=== PATIENT | male | born 1960 | race Caucasian/White ===

== ENCOUNTER 2019-10-21 13:17 | Outpatient (RCR) | payer MEDICARE, SELFPAY ==
--- NOTE | 2019-10-21 14:29 | PTOPEVAL ---
Thank you for referring this patient to [facility]. Please review, sign, date and return this plan of care [facility]. I agree with and certify that the following plan of care is medically necessary. Referring Physician Date Admitting Provider: Attending Provider: Edith Flores, JUVENILE PROBATION OFFICER Referring Provider: *PT Outpatient Evaluation Start: 10/21/19 13:07 Freq: Status: Active Protocol: Document 10/21/19 13:08 ELANA (Rec: 10/21/19 13:55 ELANA [id number]) Therapy Assessment Status Assessment Status Assessment Status Evaluation Evaluation Information Problem Diagnosis lumbar radiculopathy Onset 10/14/19 Subjective Information Pt. reports that he has been Query Text:As Reported By Patient/ experiencing on/off low back Family pain for 4-5 years. He reports that he has attempted epidural and nerve blocks without success. He reports that he takes Vicodin daily and has for the past 2 months. He reports that pain is located across the low back. He states that he is currently no disability for his low back pain. He reports that pain is worsened with all activities and states that he only gets 4 hours of sleep nightly due to pain. He reports that he does care for himself. He reports that his goal is to attempt to reduce his back pain. Diagnostic Tests MRI For This Problem Yes: L5-S1 severe degenration Prior Level of Function Activity Level (Last 3 Months) Hand Dominance Right Activity of Daily Living Ability Independent Indoor/Home Mobility Independent Community Mobility Independent Stairs Ability Independent Functional Cognition (Planning, Shopping Independent , Taking Medications) Cooking Yes Cleaning Yes Laundry Yes Shopping Yes Driving Yes Pain Assessment Timing of Pain Assessment Timing of Pain Assessment Pre-Treatment Pain Scale Pain Scale Used Numeric (1 - 10) Self Report Pain Assessment Lower Back Reported Pain Level 5 Pain Description Aching,Burning Current Pain Intensity 5
== END 2019-11-04 23:59 | disposition home or self-care (01) ==
LOC: CHSPT 13:17
PROVIDERS: PCP Family Medicine; Visit Provider Nurse Practitioner Family
DX: M54.16 Radiculopathy, lumbar region (principal)
CPT/HCPCS: 97014; 97110; 97161; G0283

== ENCOUNTER 2020-02-13 07:58 | Outpatient (CLI) | payer MEDICARE, SELFPAY ==
--- NOTE | ~2020-02-13 | MR_ITS ---
EXAMINATION: MR thoracic spine wo con DATE: 02/13/2020 09:45 INDICATION: Chronic back pain. Lumbar radiculopathy. TECHNIQUE: Magnetic resonance imaging (MRI) of the thoracic spine was performed without intravenous c ontrast. Sagittal localizer T1-weighted FSE of the cervical spine was obtained. Thoracic spine sequen edmund included sagittal T2-weighted FSE, sagittal T1-weighted FSE, sagittal T2-weighted FS FSE, and axi al T2-weighted FSE. COMPARISON: Chest CT 04/20/2019 FINDINGS: Bone alignment is normal and thoracic spine. Vertebral body heights are normal. There are h emangiomas in T10 and T12 vertebral bodies. Intervertebral disc heights are normal. The discs do not extend beyond the endplate margins. There is multilevel mild facet joint osteoarthritis. At T1-T2, th ere is mild bilateral neural foraminal stenosis. No central canal stenosis. The spinal cord signal in tensity is normal. IMPRESSION: 1. Mild thoracic spondylosis. Reviewed, dictated and finalized at location A.
== END 2020-02-13 07:59 | disposition home or self-care (01) ==
LOC: CHSIMG 08:00
PROVIDERS: PCP Family Medicine; Visit Provider Nurse Practitioner Family
DX: M54.16 Radiculopathy, lumbar region (principal)
CPT/HCPCS: 72146

== ENCOUNTER 2020-08-22 09:55 | Outpatient (CLI) | payer MEDICARE, SELFPAY ==
[2020-08-22 10:10] LABS: Hematocrit 43.2 % (40.0-54.0); Hemoglobin 14.5 g/dL (14.0-18.0); Mean Corpuscular HGB Conc 33.6 g/dL (32.0-36.0); Mean Corpuscular Hemoglobin 29.7 pg (27.0-31.0); Mean Corpuscular Volume 88.5 fL (78.0-102.0); Mean Platelet Volume 9.8 fl (8.7-11.0); Platelet Count Result 156 K/mm3 (150-420); Red Blood Count 4.88 M/mm3 (4.70-6.10); Red Cell Distribution Width 12.5 % (11.6-14.4); White Blood Count 7.8 K/mm3 (4.8-10.8)
[2020-08-22 10:39] LABS: Alanine Aminotransferase 29 U/L (16-63); Albumin Level 4.4 g/dL (3.4-5.0); Alkaline Phosphatase 127 U/L (46-116); Anion Gap 9 mmol/L (8-16); Aspartate Amino Transferase < 10 U/L (15-37); Bilirubin,Total 0.4 mg/dL (0.00-1.00); Blood Urea Nitrogen 21 mg/dL (7-18); Calcium 9.6 mg/dL (8.5-10.1); Carbon Dioxide 29 mmol/L (21-32); Chloride 103 mmol/L (98-108); Cholesterol 302 mg/dL (0-200); Estimated Glomerular Filt Rate > 60; Glucose 105 mg/dL (70-99); HDL Direct 37 mg/dL (40-60); LDL Cholesterol Calculated 215 mg/dL (<130); Osmolality Calculated 295 mOsm/kg (285-295); Potassium 4.9 mmol/L (3.5-5.1); Sodium 141 mmol/L (136-145); Total Protein 7.6 g/dL (6.4-8.2); Triglycerides 251 mg/dL (0-150)
== END 2020-08-22 09:56 | disposition home or self-care (01) ==
LOC: CHSLAB 09:58
PROVIDERS: PCP Family Medicine; Visit Provider Family Medicine
DX: E78.5 Hyperlipidemia, unspecified (principal); F17.200 Nicotine dependence, unspecified, uncomplicated; I10 Essential (primary) hypertension; R03.0 Elevated blood-pressure reading, without diagnosis of hypertension
CPT/HCPCS: 36415; 80053; 80061; 85027

== ENCOUNTER 2021-12-11 12:34 | Outpatient (CLI) | payer MEDICARE, SELFPAY ==
--- NOTE | ~2021-12-11 | US_ITS ---
EXAMINATION: US arterial ankle brachial ind DATE: 12/11/2021 13:08 INDICATION: Peripheral vascular disease, unspecified. TECHNIQUE: Segmental pressures and plethysmographic and Doppler waveforms of the brachial and lower e xtremity arteries were obtained. COMPARISON: None. FINDINGS: Right and left brachial artery pressures of 130 mm Hg and 134 mm Hg, respectively, are concordant (no rmal difference <= 30 mmHg). The right ankle-brachial index (LUANA) is 1.10 (normal >= 0.9-1.0). The right great toe-brachial index (TBI) is 0.78 (normal >= 0.65). Arterial Doppler waveforms are triphasic at the ankle. The left LUANA is 1.13. The left TBI is 0.68. Arterial Doppler waveforms are triphasic at the ankle. IMPRESSION: 1. No significant arterial occlusive disease. Reviewed, dictated and finalized at location A.
[2021-12-11 12:47] LABS: Hematocrit 36.9 % (40.0-54.0); Hemoglobin 12.1 g/dL (14.0-18.0); Immature Platelet Fraction Pct 1.4 % (1.0-7.0); Mean Corpuscular HGB Conc 32.8 g/dL (32.0-36.0); Mean Corpuscular Hemoglobin 29.5 pg (27.0-31.0); Mean Platelet Volume 9.4 fl (8.7-11.0); Platelet Count Result 138 K/mm3 (150-420); Red Cell Distribution Width 12.8 % (11.6-14.4); White Blood Count 7.5 K/mm3 (4.8-10.8)
[2021-12-11 13:49] LABS: Alanine Aminotransferase 49 U/L (16-63); Albumin Level 3.7 g/dL (3.4-5.0); Alkaline Phosphatase 130 U/L (46-116); Anion Gap 8 mmol/L (8-16); Aspartate Amino Transferase 23 U/L (15-37); Bilirubin,Total 0.3 mg/dL (0.00-1.00); Blood Urea Nitrogen 24 mg/dL (7-18); CRP 1.9 mg/dL (0.0-0.9); Calcium 8.5 mg/dL (8.5-10.1); Carbon Dioxide 28 mmol/L (21-32); Chloride 103 mmol/L (98-108); Estimated Glomerular Filt Rate > 60; Glucose 115 mg/dL (70-99); Magnesium 1.6 mg/dL (1.8-2.4); Osmolality Calculated 293 mOsm/kg (285-295); Potassium 4.7 mmol/L (3.5-5.1); Sodium 139 mmol/L (136-145); Total Protein 6.4 g/dL (6.4-8.2)
== END 2021-12-11 12:35 | disposition home or self-care (01) ==
LOC: CHSIMG 12:34
PROVIDERS: PCP Family Medicine; Visit Provider Family Medicine
DX: I73.9 Peripheral vascular disease, unspecified (principal); L50.9 Urticaria, unspecified; F17.200 Nicotine dependence, unspecified, uncomplicated; I10 Essential (primary) hypertension
CPT/HCPCS: 36415; 80053; 83735; 85027; 85055; 86140; 93922

== ENCOUNTER 2022-05-22 10:17 | Outpatient (CLI) | payer MEDICARE, SELFPAY ==
[2022-05-22 10:34] LABS: Hematocrit 31.6 % (40.0-54.0); Hemoglobin 10.4 g/dL (14.0-18.0); Mean Corpuscular HGB Conc 32.9 g/dL (32.0-36.0); Mean Corpuscular Hemoglobin 29.7 pg (27.0-31.0); Mean Corpuscular Volume 90.3 fL (78.0-102.0); Mean Platelet Volume 9.9 fl (8.7-11.0); Platelet Count Result 139 K/mm3 (150-420); Red Cell Distribution Width 12.9 % (11.6-14.4); White Blood Count 6.4 K/mm3 (4.8-10.8)
[2022-05-22 11:01] LABS: Alanine Aminotransferase 23 U/L (16-63); Albumin Level 3.6 g/dL (3.4-5.0); Alkaline Phosphatase 116 U/L (46-116); Anion Gap 5 mmol/L (8-16); Aspartate Amino Transferase 15 U/L (15-37); Bilirubin,Total 0.2 mg/dL (0.00-1.00); Blood Urea Nitrogen 33 mg/dL (7-18); Calcium 8.3 mg/dL (8.5-10.1); Carbon Dioxide 26 mmol/L (21-32); Chloride 104 mmol/L (98-108); Estimated Glomerular Filt Rate 37; Glucose 97 mg/dL (70-99); Osmolality Calculated 287 mOsm/kg (285-295); Potassium 4.3 mmol/L (3.5-5.1); Sodium 135 mmol/L (136-145); Total Protein 6.2 g/dL (6.4-8.2)
== END 2022-05-22 10:18 | disposition home or self-care (01) ==
LOC: CHSLAB 10:25
PROVIDERS: PCP Family Medicine; Visit Provider Family Medicine
DX: I10 Essential (primary) hypertension (principal)
CPT/HCPCS: 36415; 80053; 85027

== ENCOUNTER 2022-05-24 08:25 | Outpatient (CLI) | payer MEDICARE, SELFPAY ==
--- NOTE | ~2022-05-24 | US_ITS ---
US abdomen limited DATE: 05/24/2022 08:55 INDICATION: Splenomegaly TECHNIQUE: Real-time imaging of liver, pancreas, gallbladder, spleen COMPARISON: None FINDINGS: Examination confirms splenomegaly. No hepatic or pancreatic space-occupying mass lesion is evident. Normal hepatopedal portal venous leandra w direction. No evidence of gallstones or gallbladder wall thickening or pericholecystic fluid collection. Negativ e sonographic Sharma's sign. The common bile duct measures 3.9 mm, normal. IMPRESSION: Splenomegaly Reviewed, dictated and finalized at Location A. Reviewed, dictated and finalized at location B. IMPRESSION: Splenomegaly
== END 2022-05-24 08:26 | disposition home or self-care (01) ==
LOC: CHSIMG 08:25
PROVIDERS: PCP Family Medicine; Visit Provider Family Medicine
DX: R16.1 Splenomegaly, not elsewhere classified (principal)
CPT/HCPCS: 76705

== ENCOUNTER 2022-06-01 15:57 | Outpatient (CLI) | payer MEDICARE, SELFPAY ==
[2022-06-01 16:17] LABS: Basophils Absolute Auto 0.04 K/mm3 (0.00-0.10); Basophils Percent Auto 0.6 % (0.0-1.0); Eosinophils Percent Auto 1.4 % (1.0-6.0); Hematocrit 33.1 % (40.0-54.0); Immature Granulocyte Absolute 0.03 K/mm3 (0.00-0.00); Immature Granulocyte Percent A 0.4 % (0.0-0.0); Lymphocytes Absolute Auto 2.63 K/mm3 (1.10-4.50); Lymphocytes Percent Auto 37.4 % (18.0-42.0); Mean Corpuscular HGB Conc 33.2 g/dL (32.0-36.0); Mean Corpuscular Volume 87.3 fL (78.0-102.0); Mean Platelet Volume 9.7 fl (8.7-11.0); Monocytes Absolute Auto 0.53 K/mm3 (0.10-0.90); Monocytes Percent Auto 7.5 % (2.0-11.0); Neutrophils Absolute Auto 3.7 K/mm3 (1.7-7.2); Neutrophils Percent Auto 52.7 % (50.0-70.0); Platelet Count Result 147 K/mm3 (150-420); Red Blood Count 3.79 M/mm3 (4.70-6.10); Red Cell Distribution Width 12.9 % (11.6-14.4)
[2022-06-01 17:25] LABS: Alanine Aminotransferase 20 U/L (16-63); Albumin Level 3.9 g/dL (3.4-5.0); Alkaline Phosphatase 121 U/L (46-116); Anion Gap 7 mmol/L (8-16); Aspartate Amino Transferase 10 U/L (15-37); Bilirubin,Total 0.3 mg/dL (0.00-1.00); Blood Urea Nitrogen 19 mg/dL (7-18); Calcium 8.6 mg/dL (8.5-10.1); Carbon Dioxide 29 mmol/L (21-32); Chloride 106 mmol/L (98-108); Estimated Glomerular Filt Rate 53; Ferritin 290 ng/mL (26-388); Folic Acid 11.3 ng/mL (8.6->20); Glucose 111 mg/dL (70-99); Iron 42 ug/dL (65-175); Lactate Dehydrogenase 170 U/L (85-227); Osmolality Calculated 297 mOsm/kg (285-295); Percent Iron Saturation 15 % (12-57); Potassium 3.9 mmol/L (3.5-5.1); Sodium 142 mmol/L (136-145); Total Protein 6.4 g/dL (6.4-8.2); Vitamin B12 567 pg/mL (193-986)
[2022-06-05 04:57] LABS: Angiotensin Converting Enzyme 10.9 U/L (9-67)
[2022-06-05 16:00] LABS: Alpha 1 Globulin 0.5 g/dL (0.2-0.3); Alpha 2 Globulin 0.7 g/dL (0.5-0.9); Beta 1 Globulin 0.4 g/dL (0.4-0.6); Gamma Globulin 0.6 g/dL (0.8-1.7); Protein, Total 6.4 g/dL (6.1-8.1)
[2022-06-06 10:21] LABS: BCR/abl Prior Result Not Given
[2022-06-06 11:09] LABS: BCR/abl P190 Not Detected; BCR/abl P210 Not Detected
[2022-06-06 11:10] LABS: BCR/abl P190 Chg YES; BCR/abl P210 Chg YES
[2022-06-07 13:43] LABS: CALR Exon 9 Mutation Not Detected (Not Detected); CSF3R Exon 14/17 Mutation Not Detected (Not Detected); JAK2 Exon 12 Mutation Not Detected (Not Detected); JAK2 V617F Mutation Not Detected (Not Detected); MPL Exon 10 Mutation Not Detected (Not Detected)
== END 2022-06-01 15:58 | disposition home or self-care (01) ==
LOC: CHSLAB 15:59
PROVIDERS: PCP Family Medicine; Visit Provider Internal Medicine Hematology & Oncology
DX: R16.1 Splenomegaly, not elsewhere classified (principal); D64.9 Anemia, unspecified; D47.1 Chronic myeloproliferative disease; D47.3 Essential (hemorrhagic) thrombocythemia
CPT/HCPCS: 36415; 80053; 81206; 81207; 81219; 81270; 81402; 81403; 81479; 82164; 82607; 82728; 82746; 83540; 83550; 83615; 84155; 84165; 85025

== ENCOUNTER 2022-06-06 10:48 | Outpatient (CLI) | payer MEDICARE, SELFPAY ==
--- NOTE | ~2022-06-06 | CT_ITS ---
EXAMINATION: CT lung screening DATE: 06/06/2022 11:10 INDICATION: History of tobacco use TECHNIQUE: Computed tomography (CT) of the chest was performed without intravenous contrast. The dose -length product was 126.69 mGy-cm. Automated exposure control and iterative reconstruction technique were employed. COMPARISON: CT dated 04/20/2019 FINDINGS: No thoracic lymphadenopathy. Heart size normal. No significant pleural or pericardial effus ion. Minimal atherosclerosis. There is splenomegaly. There is a 2 mm fissural nodule on the right. Th ere is left basilar atelectasis. No pneumothorax. No peripheral consolidation. No endobronchial lesio ns. There is a spinal stimulator lead overlying the mid thoracic spine. Mild thoracic spondylosis. IMPRESSION: 1. Lung-RADS category 2: Benign appearance or behavior. Continue annual screening with noncontrast lo w-dose chest CT in 12 months. Reviewed, dictated and finalized at location B. IMPRESSION: 1. Lung-RADS category 2: Benign appearance or behavior. Continue annual screeni ng with noncontrast low-dose chest CT in 12 months.
== END 2022-06-06 10:49 | disposition home or self-care (01) ==
PROVIDERS: PCP Family Medicine; Visit Provider Internal Medicine Hematology & Oncology
DX: Z12.2 Encounter for screening for malignant neoplasm of respiratory organs (principal); Z87.891 Personal history of nicotine dependence
CPT/HCPCS: 71271

== ENCOUNTER 2022-08-01 13:51 | Outpatient (CLI) | payer MEDICARE, SELFPAY ==
[2022-08-01 14:06] LABS: Hematocrit 38.2 % (40.0-54.0); Hemoglobin 12.2 g/dL (14.0-18.0); Immature Platelet Fraction Pct 1.5 % (1.0-7.0); Mean Corpuscular HGB Conc 31.9 g/dL (32.0-36.0); Mean Corpuscular Hemoglobin 27.8 pg (27.0-31.0); Mean Platelet Volume 9.7 fl (8.7-11.0); Platelet Count Result 148 K/mm3 (150-420); Red Blood Count 4.39 M/mm3 (4.70-6.10); Red Cell Distribution Width 12.1 % (11.6-14.4); White Blood Count 5.1 K/mm3 (4.8-10.8)
[2022-08-01 15:20] LABS: Alanine Aminotransferase 14 U/L (16-63); Albumin Level 3.8 g/dL (3.4-5.0); Alkaline Phosphatase 115 U/L (46-116); Anion Gap 8 mmol/L (8-16); Aspartate Amino Transferase 13 U/L (15-37); Bilirubin,Total 0.3 mg/dL (0.00-1.00); Blood Urea Nitrogen 21 mg/dL (7-18); CRP 0.9 mg/dL (0.0-0.9); Calcium 8.6 mg/dL (8.5-10.1); Carbon Dioxide 32 mmol/L (21-32); Chloride 105 mmol/L (98-108); Estimated Glomerular Filt Rate > 60; Glucose 100 mg/dL (70-99); Lipase 41 U/L (73-393); Osmolality Calculated 303 mOsm/kg (285-295); Potassium 4.2 mmol/L (3.5-5.1); Sodium 145 mmol/L (136-145); Total Protein 6.5 g/dL (6.4-8.2)
== END 2022-08-01 13:52 | disposition home or self-care (01) ==
LOC: CHSLAB 13:52
PROVIDERS: PCP Family Medicine; Visit Provider Internal Medicine Hematology & Oncology
DX: D64.9 Anemia, unspecified (principal); R10.9 Unspecified abdominal pain
CPT/HCPCS: 36415; 80053; 83690; 85027; 85055; 86140

== ENCOUNTER 2022-09-11 09:46 | Outpatient (CLI) | payer MEDICARE, SELFPAY ==
[2022-09-11 09:56] LABS: Basophils Percent Auto 0.2 % (0.2-1.2); Eosinophils Absolute Auto 0.1 K/mm3 (0-0.3); Eosinophils Percent Auto 1.4 % (0-4.4); Hematocrit 38.8 % (42.0-52.0); Immature Granulocyte Absolute 0.02 K/mm3 (0.00-0.031); Immature Granulocyte Percent A 0.3 % (0-0.5); Lymphocytes Absolute Auto 1.45 K/mm3 (0.9-3.2); Mean Corpuscular HGB Conc 33.5 g/dl (32-36); Mean Corpuscular Hemoglobin 27.8 pg (26-34); Mean Corpuscular Volume 83.1 fl (80-100); Monocytes Absolute Auto 0.4 K/mm3 (0.1-0.6); Monocytes Percent Auto 7.4 % (2.6-8.5); Neutrophils Absolute Auto 3.8 K/mm3 (1.3-6.7); Neutrophils Percent Auto 65.7 % (45.5-73.1); Platelet Count Result 144 k/mm3 (150-375); Red Blood Count 4.67 M/mm3 (4.6-6.20); Red Cell Distribution Width 13.2 % (11.5-14.5); White Blood Count 5.8 K/mm3 (4.5-10.0)
[2022-09-11 10:05] LABS: Blood Urea Nitrogen 17 mg/dL (8-26); Carbon Dioxide 25 mmol/L (22-30); Chloride 105 mmol/L (98-109); Estimated Glomerular Filt Rate > 60; Glucose 113 mg/dL (70-105); Ionized Calcium (POC) 1.18 mmol/L (1.11-1.31); Potassium 4.3 mmol/L (3.5-4.9); Sodium 139 mmol/L (138-146)
[2022-09-11 12:18] LABS: Alanine Aminotransferase 17 U/L (6-50); Albumin Level 4.4 g/dL (3.5-5.1); Alkaline Phosphatase 125 U/L (38-126); Anion Gap 8 mmol/L (8-16); Aspartate Amino Transferase 18 U/L (17-59); Bilirubin,Total 0.5 mg/dL (0.2-1.3); Blood Urea Nitrogen 16 mg/dL (9-20); Calcium 9.1 mg/dL (8.4-10.2); Carbon Dioxide 24 mmol/L (22-30); Chloride 104 mmol/L (98-107); Estimated Glomerular Filt Rate > 60; Glucose 112 mg/dL (65-110); Potassium 4.3 mmol/L (3.4-5.0); Sodium 136 mmol/L (137-145)
== END 2022-09-11 09:47 | disposition home or self-care (01) ==
LOC: ANHLAB 09:47
PROVIDERS: PCP Family Medicine; Visit Provider Internal Medicine Hematology & Oncology
DX: D64.9 Anemia, unspecified (principal)
CPT/HCPCS: 36415; 80047; 80053; 85025

== ENCOUNTER 2022-11-20 09:22 | Emergency (ER) | payer MEDICARE, SELFPAY ==
[2022-11-20] VITALS (97 sets, daily range): BP systolic 67–128; BP diastolic 37–94; PULSE 76–103; RESP 12–31; TEMP 36.6; O2SAT 92–100
--- NOTE | ~2022-11-20 | XR_ITS ---
Portable chest x-ray Comparison: None Clinical History: Shortness of breath Findings: There is linear scarring at the right midlung. No other consolidation or pleural effusion. Cardiomediastinal silhouette is stable. Intrathecal catheter present. Bones and soft tissues are ot herwise unremarkable. Impression: Linear scarring right midlung, otherwise clear lungs. Reviewed, dictated and finalized at location . Impression: Linear scarring right midlung, otherwise clear lungs.
--- NOTE | ~2022-11-20 | CT_ITS ---
EXAMINATION: CT abdomen pelvis wo con DATE: 11/20/2022 11:38 INDICATION: Abdominal pain, GI bleed TECHNIQUE: Computed tomography (CT) of the abdomen and pelvis was performed without intravenous contr ast. The dose-length product (DLP) was 783.14 mGy-cm. Automated exposure control and iterative recons truction technique were employed. COMPARISON: None FINDINGS: Minimal dependent atelectasis is present in the lung bases. The heart size is normal. There is mild nodularity of the liver surface. Splenomegaly is noted. There are perisplenic varices. The g allbladder, pancreas, and adrenal glands are normal. The kidneys are unremarkable. No pathologically enlarged abdominal or pelvic lymph nodes are identified. No free intraperitoneal gas or evidence of b owel obstruction. There is liquid stool throughout the colon to the level of the rectum. There is sev ere lumbar spondylosis at L5-S1. IMPRESSION: 1. 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 Reviewed, dictated and finalized at location L.
--- NOTE | ~2022-11-20 | XR_ITS ---
EXAMINATION: XR abdomen/kub 1V INDICATION: Generalized abdominal pain, GI bleeding TECHNIQUE: Supine views of the abdomen were obtained on three radiographs. COMPARISON: None FINDINGS: The bowel gas pattern is nonspecific. No dilated loops of bowel are seen. The visualized ji ng bases are clear. A neurostimulator device is implanted on the left with its leads projecting over the lower thoracic spine at the level of T8 and T9. IMPRESSION: 1. Nonspecific bowel gas pattern. Reviewed, dictated and finalized at location L.
--- NOTE | 2022-11-20 09:26 | ED.GENADULT ---
HPI - General Adult General Chief complaint: Abdominal Pain Stated complaint: Abdominal pain/Low BP Time Seen by Provider: 11/20/22 09:24 History of Present Illness HPI narrative: 62-year-old white male seen in the [facility] get clinic today with abdominal pain blood pressure in the 70s over 40s with the elevated pulse with blood in his stool black stools last couple days sent over by the physician chef assistant. Patient states he has had blood in his stool for the last 3 days has history of iron deficiency anemia. Does have been bright red on Saturday he vomited then no blood. He has had black stools since. He has had off and on for the last month he is taking about 1600 mg of ibuprofen. Is not on any blood thinners complains of epigastric pain. Denies any dizzy or lightheadedness he has not been eating very much last couple days. Denies any other bleeding or bruising. Denies any chest pain. He has got chronic back and leg pain. Related Data Allergies Allergy/AdvReac Type Severity Reaction Status Date / Time No Known Allergies Allergy Verified 11/20/22 09:29 Review of Systems Constitutional: Constitutional: Reports no additional constitutional complaints, Denies fever(s) and Denies weakness Eyes: Eyes: Reports no additional eye complaints ENT: Reports system reviewed and no additional complaints, except as documented Cardiovascular: Cardiovascular: Reports no additional cardiovascular complaints Respiratory: Respiratory: Reports no additional respiratory complaints Gastrointestinal: Gastrointestinal: Reports as per HPI, Reports abdominal pain, Denies constipation, Denies heartburn, Reports diarrhea, Reports nausea and Reports vomiting Genitourinary: Genitourinary: Reports no additional male genitourinary complaints Musculoskeletal: Musculoskeletal: Reports no additional musculoskeletal complaints Integumentary/Breasts: Skin/Breast: Denies rash Neurologic: Reports system reviewed and no additional complaints, except as documented Psychiatric: Psychiatric: Reports no additional psychiatric complaints Hematologic/Lymphatic: Hematologic/Lymphatic: Reports no additional hematologic/lymphatic complaints, Denies easy bleeding and Denies easy bruising Allergic/Immunologic: Allergic/Immunologic: Reports no additional allergic/immunologic complaints PMFSH Past Medical History Medical History Chronic back pain Hyperlipidemia Hypertension Nicotine dependence, unspecified, uncomplicated Urticaria Surgical History Surgical History No history of previous surgery Family History Family History Father Lung cancer Brother Family history of type 2 diabetes mellitus Social History Social History Smoking packs per day: 2 Smoking cigarettes per day: 40.0 Years smoked: 40 Smoking pack-years: 80.00 Smoking status: Current every day smoker Second hand tobacco smoke exposure: No Additional smoking assessment comments: Tried Chantix. Unsuccesful. Alcohol intake: current Alcohol use details: Consumes beer aprox 3 times per week. Substance use type: marijuana Lack of Transportation: No Lack of Food: Never True Current Housing: I Have Housing Concerned About Future Housing: No Difficulty Paying Gas/Electric Bills: No Difficulty Paying for Meds: No Currently Unemployed: No Education: High School Diploma/GED Difficulty w/ Childcare or Family Care: Decline to Answer Occupation/Education: occupation Additional occupation/education comments: Disability due to chronic back pain. Gender identity (if verbalized by the patient): Male Exam Narrative: White male no apparent distress.? blood pressure 86/62, pulse 100, respirations 18, temp afebrile O2 sat on room
[2022-11-20] MEDS: SODIUM CHLORIDE 0.9% IV 1,000 ML 999 ML IV CONT ×2 (09:45→10:34)
[2022-11-20] MEDS: ONDANSETRON INJ 4 MG/2 ML VIAL IV PUSH (09:45)
[2022-11-20] MEDS: PANTOPRAZOLE SODIUM IV 40 MG VIAL 80 MG IV PUSH (09:46)
--- NOTE | 2022-11-20 10:11 | PC.NURSE ---
PT DENIES ANY COMPLAINTS. SKIN W-D-P. VSS AT THIS TIME. IVF INFUSING ORDERED WITHOUT DIFFICULTY. WILL CONTINUE TO MONITOR.
[2022-11-20 10:21] LABS: Hematocrit 34.2 % (40.0-54.0); Hemoglobin 11.2 g/dL (14.0-18.0); Mean Corpuscular HGB Conc 32.7 g/dL (32.0-36.0); Mean Corpuscular Hemoglobin 28.3 pg (27.0-31.0); Mean Corpuscular Volume 86.4 fL (78.0-102.0); Mean Platelet Volume 10.4 fl (8.7-11.0); Platelet Count Result 136 K/mm3 (150-420); Red Blood Count 3.96 M/mm3 (4.70-6.10); Red Cell Distribution Width 14.9 % (11.6-14.4); White Blood Count 6.7 K/mm3 (4.8-10.8)
[2022-11-20 10:24] LABS: Occult Blood Positive (Negative)
--- NOTE | 2022-11-20 10:25 | PC.NURSE ---
BEDSIDE RECTAL PERFORMED PER ERP, GUIAC CARD SENT TO LAB. PT TOLERATED WELL. WILL CONTINUE TO MONITOR. 2ND IV SITE ESTABLISHED.
[2022-11-20 10:36] LABS: Alanine Aminotransferase 39 U/L (16-63); Albumin Level 3.5 g/dL (3.4-5.0); Alkaline Phosphatase 97 U/L (46-116); Anion Gap 19 mmol/L (8-16); Aspartate Amino Transferase 41 U/L (15-37); Bilirubin,Total 0.3 mg/dL (0.00-1.00); Blood Urea Nitrogen 74 mg/dL (7-18); Calcium 8.2 mg/dL (8.5-10.1); Carbon Dioxide 16 mmol/L (21-32); Chloride 101 mmol/L (98-108); Estimated CRCL calculation 12 ml/min; Estimated Glomerular Filt Rate 9; Glucose 103 mg/dL (70-99); Lipase 31 U/L (16-77); Magnesium 1.8 mg/dL (1.8-2.4); Osmolality Calculated 303 mOsm/kg (285-295); Potassium 4.8 mmol/L (3.5-5.1); Sodium 136 mmol/L (136-145); Total Protein 7.2 g/dL (6.4-8.2)
[2022-11-20 10:45] LABS: INR 0.9; Partial Thromboplastin Time 26.6 SEC (23.90-30.70); Prothrombin Time 10.4 Seconds (9.50-12.10)
[2022-11-20 10:59] LABS: Influenza A QL RT-PCR Negative (Negative); Influenza B QL RT-PCR Negative (Negative); SARS-CoV-2 RNA PCR Negative (Negative)
[2022-11-20 11:00] LABS: RSV RNA, RT-PCR Negative (Negative)
[2022-11-20] MEDS: SODIUM CHLORIDE 0.9% IV 1,000 ML 150 ML IV CONT (11:25)
--- NOTE | 2022-11-20 11:41 | PC.NURSE ---
PT'S HAS ARRIVED, PT HAS RETURNED FROM CT. PT IS ON BEDPAN AT THIS TIME. PT IS BECOMING ANXIOUS, REPORTING HE DOES NOT WANT TO GET IN AN AMBULANCE UNTIL HE SMOKES AND THAT HE CANNOT AFFORD AN AMBULANCE RIDE, THAT HE WOULD LIKE FOR HIS TO DRIVE HIM. EDUCATED AND PT ON THE IMPORTANCE OF EMS TRANSPORT DUE TO BP VALUES AT THIS TIME. PT IS GETTING HIMSELF WORKED UP. WILL ALLOW SOME PRIVACY TO UTILIZE BEDPAN AND RECHECK WHEN FINISHED. REMAINS AT BEDSIDE. PT DOES REPORT HE USED FENTANYL ON SATURDAY DUE TO BACK AND LEG PAIN. PT ALSO REPORTS HE IS A RECOVERING HEROIN ADDICT AND THE BACK STIMULATOR IS IN PLACE DUE TO HIM BEING ADDICTED TO THE VICODIN HE USED TO TAKE FOR HIS BACK PAIN. WILL CONTINUE TO MONITOR. IVF ARE INFUSING WITHOUT DIFFICULTY.
--- NOTE | 2022-11-20 13:37 | PC.NURSE ---
PT IS MUCH MORE CALM AT THIS TIME. PT AND ARE AWARE OF PLAN OF CARE. NO CHANGE IN PT STATUS. AWAITING ROOM ASSIGNMENT AT [facility] AT THIS TIME. WILL CONTINUE TO MONITOR.
--- NOTE | 2022-11-20 14:30 | PC.NURSE ---
pt is requesting something for pain, something to eat, to smoke. erp is aware. ivf and medications are infusing as ordered without difficulty. will continue to monitor.
[2022-11-20] MEDS: LORazepam (*CRX) 0.5 MG TABLET PO (14:53)
[2022-11-20] MEDS: MORPHINE SULFATE (*CRX) 2 MG/ML INJ 1 MG IV PUSH (14:55)
--- NOTE | 2022-11-20 15:02 | PC.NURSE ---
PT HAS HAD 2 LIQUID BROWN STOOLS. NO BLOOD NOTED. PT HAS BEEN MEDICATED. PT IS LYING ON STRETCHER TALKING WITH AND WATCHING TV AT THIS TIME. NAD NOTED. PT IS AWAITING ROOM ASSIGNMENT AT [facility]. WILL CONTINUE TO MONITOR.
--- NOTE | 2022-11-20 17:05 | PC.NURSE ---
CLEAR LIQUID TRAY PROVIDED ORDERED PER ERP. AT BEDSIDE. PT AND ARE AWARE OF PLAN OF CARE. PT HAS 600 ML CLEAR URINE OUTPUT. WILL CONTINUE TO MONITOR.
--- NOTE | 2022-11-20 17:35 | PC.NURSE ---
PT IS MOVED TO ROOM 4, PLACED IN HOSPITAL BED AT THIS TIME. AT BEDSIDE. PT ATE 75% OF FOOD TRAY. LAB AT BEDSIDE AT THIS TIME. PT DENIES ANY NEEDS OR COMPLAINTS. WILL CONTINUE TO MONITOR.
[2022-11-20 17:43] LABS: Hematocrit 33.9 % (40.0-54.0); Mean Corpuscular HGB Conc 32.4 g/dL (32.0-36.0); Mean Corpuscular Hemoglobin 29.3 pg (27.0-31.0); Mean Corpuscular Volume 90.4 fL (78.0-102.0); Mean Platelet Volume 10.1 fl (8.7-11.0); Platelet Count Result 110 K/mm3 (150-420); Red Blood Count 3.75 M/mm3 (4.70-6.10); Red Cell Distribution Width 15.1 % (11.6-14.4); White Blood Count 5.1 K/mm3 (4.8-10.8)
[2022-11-20 17:52] LABS: Anion Gap 15 mmol/L (8-16); Blood Urea Nitrogen 66 mg/dL (7-18); Calcium 8.1 mg/dL (8.5-10.1); Carbon Dioxide 16 mmol/L (21-32); Chloride 109 mmol/L (98-108); Estimated CRCL calculation 18 ml/min; Estimated Glomerular Filt Rate 14; Glucose 107 mg/dL (70-99); Osmolality Calculated 309 mOsm/kg (285-295); Sodium 140 mmol/L (136-145)
[2022-11-20] MEDS: SODIUM CHLORIDE 0.9% IV 1,000 ML 125 ML IV CONT (18:14)
[2022-11-21] VITALS (10 sets, daily range): BP systolic 82–114; BP diastolic 48–74; PULSE 86–96; RESP 14–22; O2SAT 92–95
[2022-11-21] MEDS: SODIUM CHLORIDE 0.9% IV 1,000 ML 125 ML IV CONT (02:38)
[2022-11-21] MEDS: LORazepam (*CRX) 1 MG TABLET PO (03:06)
== END 2022-11-21 05:04 | disposition short-term general hospital (02) ==
PROVIDERS: Emergency Provider Emergency Medicine; PCP Family Medicine
DX: K92.2 Gastrointestinal hemorrhage, unspecified (principal); N17.9 Acute kidney failure, unspecified; I10 Essential (primary) hypertension; E78.5 Hyperlipidemia, unspecified; F17.210 Nicotine dependence, cigarettes, uncomplicated; Z20.822 Contact with and (suspected) exposure to COVID-19
CPT/HCPCS: 36415; 71045; 74018; 74176; 80048; 80053; 83605; 83690; 83735; 85027; 85610; 85730; 86850; 86900; 86901; 87637; 96361; 96365; 96375; 99285; A9270; C9113; J0696; J2270; J2405; J7030

== ENCOUNTER 2022-11-29 10:19 | Outpatient (CLI) | payer MEDICARE, SELFPAY ==
[2022-11-29 10:32] LABS: Hematocrit 34.9 % (40.0-54.0); Hemoglobin 11.6 g/dL (14.0-18.0); Mean Corpuscular HGB Conc 33.2 g/dL (32.0-36.0); Mean Corpuscular Hemoglobin 29.5 pg (27.0-31.0); Mean Corpuscular Volume 88.8 fL (78.0-102.0); Mean Platelet Volume 9.4 fl (8.7-11.0); Platelet Count Result 208 K/mm3 (150-420); Red Blood Count 3.93 M/mm3 (4.70-6.10); Red Cell Distribution Width 14.3 % (11.6-14.4); White Blood Count 6.6 K/mm3 (4.8-10.8)
[2022-11-29 10:59] LABS: Alanine Aminotransferase 23 U/L (16-63); Albumin Level 4.1 g/dL (3.4-5.0); Alkaline Phosphatase 109 U/L (46-116); Anion Gap 11 mmol/L (8-16); Aspartate Amino Transferase 13 U/L (15-37); Bilirubin,Total 0.4 mg/dL (0.00-1.00); Blood Urea Nitrogen 17 mg/dL (7-18); Calcium 8.8 mg/dL (8.5-10.1); Carbon Dioxide 27 mmol/L (21-32); Chloride 107 mmol/L (98-108); Estimated Glomerular Filt Rate > 60; Glucose 93 mg/dL (70-99); Osmolality Calculated 301 mOsm/kg (285-295); Potassium 4.4 mmol/L (3.5-5.1); Sodium 145 mmol/L (136-145); Total Protein 7.3 g/dL (6.4-8.2)
== END 2022-11-29 10:20 | disposition home or self-care (01) ==
LOC: CHSLAB 10:22
PROVIDERS: PCP Family Medicine; Visit Provider Family Medicine
DX: D69.6 Thrombocytopenia, unspecified (principal)
CPT/HCPCS: 36415; 80053; 85027

== ENCOUNTER 2023-03-04 08:22 | Outpatient (CLI) | payer MEDICARE, SELFPAY ==
[2023-03-04 08:37] LABS: Basophils Absolute Auto 0.06 K/mm3 (0.00-0.10); Eosinophils Absolute Auto 0.21 K/mm3 (0.02-0.50); Eosinophils Percent Auto 3.5 % (1.0-6.0); Hematocrit 43.1 % (40.0-54.0); Hemoglobin 15.1 g/dL (14.0-18.0); Immature Granulocyte Absolute 0.05 K/mm3 (0.00-0.00); Immature Granulocyte Percent A 0.8 % (0.0-0.0); Lymphocytes Absolute Auto 0.93 K/mm3 (1.10-4.50); Lymphocytes Percent Auto 15.7 % (18.0-42.0); Mean Corpuscular Volume 85.7 fL (78.0-102.0); Mean Platelet Volume 9.6 fl (8.7-11.0); Monocytes Percent Auto 11.8 % (2.0-11.0); Neutrophils Percent Auto 67.2 % (50.0-70.0); Platelet Count Result 184 K/mm3 (150-420); Red Blood Count 5.03 M/mm3 (4.70-6.10); Red Cell Distribution Width 12.4 % (11.6-14.4); White Blood Count 5.9 K/mm3 (4.8-10.8)
[2023-03-04 09:52] LABS: Alanine Aminotransferase 22 U/L (16-63); Albumin Level 4.1 g/dL (3.4-5.0); Alkaline Phosphatase 111 U/L (46-116); Anion Gap 8 mmol/L (8-16); Aspartate Amino Transferase 11 U/L (15-37); Bilirubin,Total 0.3 mg/dL (0.00-1.00); Blood Urea Nitrogen 25 mg/dL (7-18); Carbon Dioxide 28 mmol/L (21-32); Chloride 103 mmol/L (98-108); Estimated Glomerular Filt Rate > 60; Ferritin 300 ng/mL (26-388); Folic Acid 9.5 ng/mL (8.6->20); Glucose 99 mg/dL (70-99); Iron 48 ug/dL (65-175); Osmolality Calculated 292 mOsm/kg (285-295); Percent Iron Saturation 14 % (12-57); Potassium 4.7 mmol/L (3.5-5.1); Sodium 139 mmol/L (136-145); Total Protein 7.2 g/dL (6.4-8.2); Vitamin B12 849 pg/mL (193-986)
== END 2023-03-04 08:23 | disposition home or self-care (01) ==
LOC: CHSLAB 08:25
PROVIDERS: PCP Family Medicine; Visit Provider Internal Medicine Hematology & Oncology
DX: D64.9 Anemia, unspecified (principal)
CPT/HCPCS: 36415; 80053; 82607; 82728; 82746; 83540; 83550; 85025

== ENCOUNTER 2023-06-10 07:43 | Outpatient (CLI) | payer MEDICARE, SELFPAY ==
--- NOTE | ~2023-06-10 | CT_ITS ---
EXAMINATION: CT lung screening DATE: 06/10/2023 08:09 INDICATION: CT dated 06/06/2022 TECHNIQUE: Computed tomography (CT) of the chest was performed without intravenous contrast. The dose -length product was 165.09 mGy-cm. Automated exposure control and iterative reconstruction technique were employed. COMPARISON: CT dated 06/06/2022 FINDINGS: No significant pleural or pericardial effusion. There is splenomegaly. No significant vascu lar abnormality. No lymphadenopathy. Stable 2 mm right fissural nodule, likely benign. No focal airsp bladimir consolidation. No endobronchial lesions. No pneumothorax. Mild thoracic spondylosis IMPRESSION: 1. Lung-RADS category 2: Benign appearance or behavior. Continue annual screening with noncontrast lo w-dose chest CT in 12 months. Reviewed, dictated and finalized at location B. IMPRESSION: 1. Lung-RADS category 2: Benign appearance or behavior. Continue annual screeni ng with noncontrast low-dose chest CT in 12 months.
== END 2023-06-10 07:44 | disposition home or self-care (01) ==
LOC: ANHIMG 07:49
PROVIDERS: PCP Family Medicine; Visit Provider Internal Medicine Hematology & Oncology
DX: Z12.2 Encounter for screening for malignant neoplasm of respiratory organs (principal); Z87.891 Personal history of nicotine dependence
CPT/HCPCS: 71271

== ENCOUNTER 2023-09-03 11:50 | Outpatient (CLI) | payer MEDICARE, SELFPAY ==
[2023-09-03 12:36] LABS: Basophils Absolute Auto 0.06 K/mm3 (0.00-0.10); Basophils Percent Auto 1.1 % (0.0-1.0); Eosinophils Percent Auto 1.8 % (1.0-6.0); Hematocrit 39.2 % (40.0-54.0); Hemoglobin 13.1 g/dL (14.0-18.0); Immature Granulocyte Absolute 0.04 K/mm3 (0.00-0.00); Immature Granulocyte Percent A 0.7 % (0.0-0.0); Lymphocytes Absolute Auto 0.68 K/mm3 (1.10-4.50); Lymphocytes Percent Auto 11.9 % (18.0-42.0); Mean Corpuscular HGB Conc 33.4 g/dL (32.0-36.0); Mean Corpuscular Volume 89.7 fL (78.0-102.0); Mean Platelet Volume 9.9 fl (8.7-11.0); Monocytes Absolute Auto 0.72 K/mm3 (0.10-0.90); Monocytes Percent Auto 12.6 % (2.0-11.0); Neutrophils Absolute Auto 4.1 K/mm3 (1.7-7.2); Neutrophils Percent Auto 71.9 % (50.0-70.0); Platelet Count Result 170 K/mm3 (150-420); Red Blood Count 4.37 M/mm3 (4.70-6.10); Red Cell Distribution Width 12.6 % (11.6-14.4); White Blood Count 5.7 K/mm3 (4.8-10.8)
[2023-09-03 14:02] LABS: Albumin Level 4.1 g/dL (3.4-5.0); Alkaline Phosphatase 93 U/L (46-116); Anion Gap 6 mmol/L (8-16); Aspartate Amino Transferase 12 U/L (15-37); Bilirubin,Total 0.3 mg/dL (0.00-1.00); Blood Urea Nitrogen 21 mg/dL (7-18); Calcium 9.1 mg/dL (8.5-10.1); Carbon Dioxide 31 mmol/L (21-32); Chloride 102 mmol/L (98-108); Estimated Glomerular Filt Rate 51; Ferritin 350 ng/mL (26-388); Folic Acid 12.9 ng/mL (8.6->20); Glucose 95 mg/dL (70-99); Iron 54 ug/dL (65-175); Osmolality Calculated 291 mOsm/kg (285-295); Percent Iron Saturation 15 % (12-57); Potassium 4.7 mmol/L (3.5-5.1); Sodium 139 mmol/L (136-145); Total Protein 6.9 g/dL (6.4-8.2); Vitamin B12 1397 pg/mL (193-986)
[2023-09-03 14:32] LABS: Alanine Aminotransferase 33 U/L (16-63)
== END 2023-09-03 11:51 | disposition home or self-care (01) ==
PROVIDERS: PCP Family Medicine; Visit Provider Internal Medicine Hematology & Oncology
DX: D64.9 Anemia, unspecified (principal)
CPT/HCPCS: 36415; 80053; 82607; 82728; 82746; 83540; 83550; 85025

== ENCOUNTER 2024-03-06 11:36 | Outpatient (CLI) | payer MEDICARE, SELFPAY ==
[2024-03-06 12:03] LABS: Basophils Absolute Auto 0.06 K/mm3 (0.00-0.10); Basophils Percent Auto 1.3 % (0.0-1.0); Eosinophils Absolute Auto 0.18 K/mm3 (0.02-0.50); Eosinophils Percent Auto 3.8 % (1.0-6.0); Hematocrit 38.5 % (40.0-54.0); Hemoglobin 13.4 g/dL (14.0-18.0); Immature Granulocyte Absolute 0.02 K/mm3 (0.00-0.00); Immature Granulocyte Percent A 0.4 % (0.0-0.0); Lymphocytes Absolute Auto 0.45 K/mm3 (1.10-4.50); Lymphocytes Percent Auto 9.6 % (18.0-42.0); Mean Corpuscular HGB Conc 34.8 g/dL (32-36); Mean Corpuscular Hemoglobin 30.2 pg (27.0-31.0); Mean Corpuscular Volume 86.7 fL (78.0-102.0); Mean Platelet Volume 9.6 fl (8.7-11.0); Monocytes Absolute Auto 0.61 K/mm3 (0.10-0.90); Neutrophils Absolute Auto 3.38 K/mm3 (1.70-7.20); Neutrophils Percent Auto 71.9 % (50.0-70.0); Platelet Count Result 179 K/mm3 (150-420); Red Blood Count 4.44 M/mm3 (4.70-6.10); Red Cell Distribution Width 11.8 % (11.6-14.4); White Blood Count 4.7 K/mm3 (4.8-10.8)
[2024-03-06 13:13] LABS: Alanine Aminotransferase 30 U/L (16-63); Alkaline Phosphatase 106 U/L (46-116); Anion Gap 9 mmol/L (4-12); Aspartate Amino Transferase 17 U/L (15-37); Bilirubin,Total 0.5 mg/dL (0.00-1.00); Blood Urea Nitrogen 15 mg/dL (7-18); Calcium 8.8 mg/dL (8.5-10.1); Carbon Dioxide 27 mmol/L (21-32); Chloride 100 mmol/L (98-108); Estimated Glomerular Filt Rate > 60; Ferritin 346 ng/mL (26-388); Folic Acid 16.6 ng/mL (8.6->20); Glucose 104 mg/dL (70-99); Iron 51 ug/dL (65-175); Osmolality Calculated 282 mOsm/kg (285-295); Percent Iron Saturation 16 % (12-57); Potassium 4.7 mmol/L (3.5-5.1); Sodium 136 mmol/L (136-145); Vitamin B12 1430 pg/mL (193-986)
== END 2024-03-06 11:37 | disposition home or self-care (01) ==
PROVIDERS: PCP Family Medicine; Visit Provider Internal Medicine Hematology & Oncology
DX: D64.9 Anemia, unspecified (principal)
CPT/HCPCS: 36415; 80053; 82607; 82728; 82746; 83540; 83550; 85025

== ENCOUNTER 2024-09-14 10:05 | Outpatient (CLI) | payer MEDICARE, SELFPAY ==
[2024-09-14 10:45] LABS: Basophils Absolute Auto 0.04 K/mm3 (0.00-0.10); Basophils Percent Auto 0.8 % (0.0-1.0); Eosinophils Absolute Auto 0.07 K/mm3 (0.02-0.50); Eosinophils Percent Auto 1.5 % (1.0-6.0); Hematocrit 39.2 % (40.0-54.0); Hemoglobin 13.3 g/dL (14.0-18.0); Immature Granulocyte Absolute 0.02 K/mm3 (0.00-0.00); Immature Granulocyte Percent A 0.4 % (0.0-0.0); Lymphocytes Absolute Auto 0.59 K/mm3 (1.10-4.50); Lymphocytes Percent Auto 12.5 % (18.0-42.0); Mean Corpuscular HGB Conc 33.9 g/dL (32-36); Mean Corpuscular Hemoglobin 29.1 pg (27.0-31.0); Mean Corpuscular Volume 85.8 fL (78.0-102.0); Mean Platelet Volume 9.5 fl (8.7-11.0); Monocytes Absolute Auto 0.44 K/mm3 (0.10-0.90); Monocytes Percent Auto 9.3 % (2.0-11.0); Neutrophils Absolute Auto 3.56 K/mm3 (1.70-7.20); Neutrophils Percent Auto 75.5 % (50.0-70.0); Platelet Count Result 170 K/mm3 (150-420); Red Blood Count 4.57 M/mm3 (4.70-6.10); Red Cell Distribution Width 12.4 % (11.6-14.4); White Blood Count 4.7 K/mm3 (4.8-10.8)
[2024-09-14 12:08] LABS: Anion Gap 8 mmol/L (4-12); Blood Urea Nitrogen 16 mg/dL (7-18); Calcium 8.8 mg/dL (8.5-10.1); Carbon Dioxide 31 mmol/L (21-32); Chloride 103 mmol/L (98-108); Estimated Glomerular Filt Rate > 60; Ferritin 312 ng/mL (26-388); Folic Acid 9.8 ng/mL (8.6->20); Glucose 120 mg/dL (70-99); Iron 66 ug/dL (65-175); Osmolality Calculated 296 mOsm/kg (285-295); Percent Iron Saturation 21 % (12-57); Potassium 5.1 mmol/L (3.5-5.1); Sodium 142 mmol/L (136-145); Vitamin B12 854 pg/mL (193-986)
== END 2024-09-14 10:06 | disposition home or self-care (01) ==
LOC: CHSLAB 10:07
PROVIDERS: PCP Family Medicine; Visit Provider Internal Medicine Hematology & Oncology
DX: D64.9 Anemia, unspecified (principal)
CPT/HCPCS: 36415; 80048; 82607; 82728; 82746; 83540; 83550; 85025